=== PATIENT | male | born 2005 | race Caucasian/White ===

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

== ENCOUNTER 2024-09-19 09:02 | Inpatient (IN) | payer MEDICAID ==
[2024-09-19] MEDS ORDERED: Propofol 200 MG/20 ML SDV ONE (09:18)
[2024-09-19] MEDS ORDERED: fentaNYL 100 MCG/2 ML SDV ONE (09:18)
[2024-09-19] MEDS ORDERED: Midazolam 1 MG/ML 2 ML SDV ONE (09:19)
[2024-09-19] MEDS: Lactated Ringers 1,000 ML IV SCH (09:47)
[2024-09-19] MEDS: ceFAZolin 2 GM in Premix Bag 1 BAG IV ONE (09:57)
[2024-09-19] MEDS: Lidocaine 1% 50 ML MDV ONE (10:22)
[2024-09-19] MEDS: Bupivacaine 0.5%/EPINEPHrine 1:200,000 50 ML MDV ONE (10:22)
[2024-09-19] MEDS ORDERED: Ondansetron 4 MG/2 ML SDV IVPUSH PRN (10:46)
[2024-09-19] MEDS ORDERED: diphenhydrAMINE 50 MG/ML SDV IVPUSH PRN (10:46)
[2024-09-19] MEDS ORDERED: fentaNYL 50 MCG/ML SDV IVPUSH PRN (10:46)
[2024-09-19] MEDS ORDERED: Zolpidem 5 MG Tab PO PRN (10:46)
[2024-09-19] MEDS ORDERED: Benzocaine/Cetylpyridinium/Menthol Lozenge MUCMEM PRN (10:46)
[2024-09-19] MEDS ORDERED: Acetaminophen/HYDROcodone 325-5 MG Tab PO PRN (10:46)
[2024-09-19] MEDS ORDERED: Acetaminophen 325 MG Tab PO PRN (10:46)
[2024-09-21 12:37] VITALS: BP 128/59
[2024-09-21 20:08] VITALS: PULSE 60
== END 2024-09-21 19:50 | disposition home or self-care (01) | DRG 201 ==
LOC: JP.SDS 09:02 → JP.2SS 10:46
PROVIDERS: ADMIT Surgery; ATTEND Surgery
PROC: 0W9B30Z Drainage of Left Pleural Cavity with Drainage Device, Percutaneous Approach (ICD-10-PCS; principal; 2024-09-19 10:00)
DX: J93.83 Other pneumothorax (principal); Z88.6 Allergy status to analgesic agent
CPT/HCPCS: 00520-QZ; 71045; 71045-26; 71046; 71046-26; C1729; C1769; J0690; J2003; J2250; J2704; J3010; J3490; J7120